=== PATIENT | male | born 1990 | race Caucasian/White ===

== ENCOUNTER 2019-09-03 00:48 | Emergency (ER) | payer OTHER ==
[~2019-09-03] VITALS: Ht 170.2 cm; Wt 100.0 kg
[2019-09-03] MEDS ORDERED: MORPHINE 10 MG/ML 1ML VIAL (J2270) IM ONE (05:30)
--- NOTE | 2019-09-03 06:05 | REPVR ---
PROCEDURE INFORMATION: Exam: CT Lumbar Spine Without Contrast Exam date and time: 09/03/2019 5:34 AM Age: 28 years old Clinical indication: Injury or trauma; Fall; Initial encounter; Blunt trauma (contusions or hematomas); Additional info: [facility] TECHNIQUE: Imaging protocol: Computed tomography images of the lumbar spine without contrast. Radiation optimization: All CT scans at this facility use at least one of these dose optimization techniques: automated exposure control; mA and/or kV adjustment per patient size (includes targeted exams where dose is matched to clinical indication); or iterative reconstruction. COMPARISON: No relevant prior studies available. FINDINGS: Vertebrae: No acute fracture. Normal alignment. Discs/Spinal canal/Neural foramina: There is mild central disc bulge at L3-L4 mildly indenting the thecal sac. Soft tissues: Unremarkable. IMPRESSION: 1. No CT evidence of traumatic lumbar spine injury. 2. Mild L3-L4 central disc bulge minimally indenting the thecal sac. Electronically signed by: Prince Zapata On 09/03/2019 06:05:10 AM
[2019-09-03 06:34] VITALS: BP 136/82
--- NOTE | 2019-09-03 08:00 | REP ---
Lumbar spine three views: The twelfth ribs are hypoplastic. 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 Vertebral body heights and alignment are normal. No compression deformities. Interspacing is normal except for mild disc space narrowing at L5 S1. This could be congenital or degenerative disc disease. There is no spondylolysis or spondylolisthesis. Mineralization is normal. Impression: No compression deformity or listhesis. 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 Electronically Signed by Jack Harrison MD 09/03/2019 07:51 A
--- NOTE | 2019-09-03 08:03 | REP ---
Cervical spine four views AP and lateral projections: Vertebral body heights, interspacing alignment are normal with see 157. Kilos obscured by the shoulders. The facets are normally aligned. Prevertebral soft tissues are normal. The odontoid view is unremarkable. 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 Electronically Signed by Jack Harrison MD 09/03/2019 07:55 A
--- NOTE | 2019-09-03 08:04 | REP ---
Right wrist four view : There is no fracture or dislocation. Mineralization and joint spaces are normal. There are no calcifications or foreign bodies. Impression: Negative right wrist . Electronically Signed by Jack Harrison MD 09/03/2019 07:56 A
--- NOTE | 2019-09-03 08:04 | REP ---
Right forearm two view : There is no fracture or dislocation. Mineralization and joint spaces are normal. There are no calcifications or foreign bodies. Impression: Negative right forearm . Electronically Signed by Jack Harrison MD 09/03/2019 07:55 A
--- NOTE | 2019-09-04 10:45 | ED PDOC ---
Post-Departure Follow-Up brooklynn vazquez faxed formal report of ct ls spine for fu Turner Stone MD Sep 04, 2019 10:45
== END 2019-09-03 08:09 | disposition home or self-care (01) ==
LOC: M ED 00:48
DX: S30.0XXA Contusion of lower back and pelvis, initial encounter (principal); W10.9XXA Fall (on) (from) unspecified stairs and steps, initial encounter; Y92.89 Other specified places as the place of occurrence of the external cause; Y93.89 Activity, other specified; Y99.1 Military activity; Q76.6 Other congenital malformations of ribs
CPT/HCPCS: 72040; 72100; 72131; 73090; 73110; 96372; 99283; J2270